=== PATIENT | male | born 1930 | race Caucasian/White ===

== ENCOUNTER 2016-12-19 00:14 | Day surgery (SDC) | payer MEDICARE, OTHER ==
[2016-12-19] VITALS (12 sets, daily range): BP systolic 113–153; BP diastolic 61–93; PULSE 73–125; RESP 15–20; O2SAT 95–98
[~2016-12-19] VITALS: Ht 172.7 cm; Wt 66.3 kg
[~2016-12-19 00:14] MED LIST: ACET-2766 PO; ASPI-973 PO; CETI10CA PO; DICY10CA56 PO; METO-272 PO; PRAV40TA PO; RIVA20TA PO
[2016-12-19] MEDS ORDERED: 0.9% Sodium Chloride 1,000 ML IV PRN (08:39)
[2016-12-19] MEDS ORDERED: Vancomycin Inj 1,000 MG in IV Premix 1 EACH IV ONE (08:40)
[2016-12-19 10:33] LABS: BASOPHILS % (AUTO) 0.4 % (0-3); EOSINOPHILS % (AUTO) 0.4 % (0-5); MONOCYTES % (AUTO) 10.3 % (4-12); Mean Corpuscular Hemoglobin 32.9 pg (27.0-35.0); Mean Corpuscular Volume 101.2 fL (81-100); NEUTROPHILS % (AUTO) 67.7 % (40-74); Platelet Count 151 bil/L (150-400)
[2016-12-19 10:51] LABS: INR 1.08 ratio
[2016-12-19] MEDS ORDERED: 0.9% Sodium Chloride 250 ML ONE (10:56)
[2016-12-19] MEDS ORDERED: Vancomycin 1,000 mg Inj ONE (10:56)
[2016-12-19] MEDS ORDERED: Heparin 5,000 Units/500 mL NS Premix IV ONE (10:56)
[2016-12-19] MEDS ORDERED: Bupivacaine-MPF 0.5% 30 mL Inj ONE (10:56)
[2016-12-19] MEDS ORDERED: fentaNYL-PF 50 mCg/mL 2 mL Inj ONE (11:48)
[2016-12-19] MEDS ORDERED: hydrALAZINE 20 mg/mL Inj ONE (13:04)
[2016-12-19] MEDS ORDERED: HYDROcodone-APAP 5-325 mg Tablet PO PRN (13:45)
[2016-12-19] MEDS ORDERED: Ondansetron 2 mg/mL 2 mL Inj IVPUSH PRN (13:45)
--- NOTE | 2016-12-19 14:49 | DRSVH ---
PROCEDURE: X-RAY CHEST ONE VIEW, PORTABLE ([id number]) INDICATIONS: For new leads placed TECHNIQUE: One view of the chest was acquired. COMPARISON: [facility], CHEST 2 VIEW, 05/06/2012, 14:26. FINDINGS: Surgical changes and devices: Dual-chamber lead cardiac pacemaker present in expected position. Medi an sternotomy wires and valvular replacement redemonstrated. Lungs and pleura: No pleural effusions or pneumothorax. Lungs are clear. Mediastinum: Mediastinal contours appear normal. Heart size is normal. Bones and chest wall: No suspicious bony lesions. Overlying soft tissues appear unremarkable. IMPRESSION: No immediate complications status post cardiac pacemaker placement. Dictated by: Anselmo CALVILLO Interpreted: Veronica Fraga MD on 12/19/2016 at 14:48 Transcribed by: CATIE on 12/19/2016 at 14:49 Approved by: Veronica Fraga M.D. on 12/20/2016 at 10:20
[2016-12-19] MEDS: 0.9% Sodium Chloride 1,000 ML IV SCH (17:38)
--- NOTE | 2016-12-19 17:53 | NUR ---
TRANSFER FROM [facility] Admitted a 86/M into room 3006 from [facility] following report from ALEXANDRA Puente. Pt A&Ox4, pleasant, denies any pain/discomfort at this time. On RA, denies any SOB at this time. Denies any CP/discomfort. Drsg to L upper chest is C/D/I. Pt has 2 PIV's, both flushing easily. AYESHA arm placed in sling. Pt using urinal to void. Tolerating HH diet. Pt did have a reaction to Yolieo per report, Demarcus carrasco'kulwinder. Pt introduced to staff, bed/controls and call light. Bed in lowest, locked position.
[2016-12-19] MEDS: MeTOProlol XL 25 mg ER24 Tablet PO SCH (20:13)
[2016-12-20] VITALS (7 sets, daily range): BP systolic 161–180; BP diastolic 85–94; PULSE 67–78; RESP 16; O2SAT 97–100
[2016-12-20] MEDS ORDERED: Vancomycin Inj 1,000 MG in IV Premix 1 EACH IV ONE (01:45)
[2016-12-20] MEDS: MeTOProlol XL 25 mg ER24 Tablet PO SCH ×2 (02:02→05:18)
[2016-12-20] MEDS: 0.9% Sodium Chloride 1,000 ML IV SCH ×2 (02:30→07:53)
--- NOTE | 2016-12-20 03:31 | OP ---
[address] [address] OPERATIVE REPORT PATIENT: EMIL DEGROOT : 1930 MR#: [id number] ADMIT: 12/19/2016 JOB ID: [id number] DATE OF SURGERY: 12/19/2016 PREOPERATIVE DIAGNOSIS(ES): Sick sinus syndrome. POSTOPERATIVE DIAGNOSIS(ES): Sick sinus syndrome. PROCEDURES PERFORMED: 1. Dual-chamber pacemaker implantation. 2. Left upper extremity venogram. 3. Fluoroscopy. SURGEON: 1. Aaron Forrester MD, electrophysiology attending. 2. Radha Morrison MD, interventional cardiology attending. PLASTERING SUPERVISOR: Greg Bush PA-C IMPLANTED DEVICES: . DEVICE: 1. [employer] pulse generator, model 2272, serial #[id number]. 2. Right atrial lead [employer], LPA 12 M, 52 cm, serial #[id number]. 3. RV lead [employer], LPA 1200 M, 58 cm, CBD [id number]. ANESTHESIA: Bolus dosing of Versed and fentanyl to an appropriate level of sedation. PHYSICAL EXAMINATION: The patient is a pleasant 86-year-old man with coronary artery disease, status post bypass grafting, aortic valve replacement, trifascicular block, sick sinus syndrome and paroxysmal atrial flutter. After discussion of the risks and benefits of pacemaker implantation, he opted to proceed. PROCEDURAL DESCRIPTION: Following informed consent, the patient was taken to the EP laboratory in a nonfasting sedated state where he was prepped in the usual sterile fashion. The left infraclavicular region was infiltrated with 40 cc of a 50/50 mixture of bupivacaine and lidocaine. Once adequate anesthesia was achieved, a 3 cm transverse incision was performed 2 cm below in the pectoralis fascia. A pocket was fashioned using a combination of electrocautery and blunt dissection. Once adequate hemostasis had been achieved, a left upper extremity venogram was performed. Under venographic guidance, the left axillary vein was cannulated twice over the first rib with a micropuncture needle to deploy two 0.035, 3 mm J guidewires. Over the first of these, an 8-Cymraes tear-away sheath was advanced the RV outflow tract and ultimately to the RV apex. The lead was affixed in position using associated active fixation screw. The lead was connected to the external analyzer and demonstrated appropriately sensed R waves, impedance and capture threshold. The lead was checked to 10 V and there was no evidence of diaphragmatic stimulation. Attention was now paid to placement of the right atrial lead over the first rib to deploy a J guidewire. Another 8-Cymraes tear-away sheath was advanced. Once the guidewire was removed, an active fixation lead was advanced to the right atrial appendage. It was affixed in position using associated active fixation screw. external analyzer and demonstrated appropriately sensed P waves, impedance, capture threshold. The lead was checked to 10 V and there was no evidence of diaphragmatic stimulation. Once the position and redundancy of both leads were confirmed with multiple fluoroscopic views, the leads were anchored to the prepectoral fascia using copious solution. was connected to a generator. using 1-0 Ti-Cron suture. The incision was then closed with running layers of absorbable suture. The wound was dressed with skin adhesive and a small dressing. At the end of the procedure, the needle, sponge and instrument counts were all correct. COMPLICATIONS: None. ESTIMATED BLOOD LOSS: Negligible. DEVICE MEASURED DATA: 1. Right atrial lead: 2.5 mV, 550 ohms, 0.5 V at 0.4 msec. 2. RV lead: 7.6 mV, 580 ohms, 0.5 V at 0.4 msec. FINAL PROGRAM PARAMETERS: DDD 60-130 beats per minute. IMPRESSION: Successful dual-chamber MRI conditional pacemaker implantation. PLAN: 1. Stat portable chest x-ray. 2. PA and lateral chest x-ray in the morning. 3. . 4. Vancomycin doxycycline 100 p.o. daily x7 days. 5. Wound check in one week. ATTENDING STATEMENT: Aaron Forrester, attending stage electrician helper, was present for and performed all aspects of this procedure.
--- NOTE | 2016-12-20 05:31 | NUR ---
Hypertension/Pacemaker BP180/90 HR78 at 0125, rechecked at 0155 BP178/88 HR73. Pt refused Metoprolol scheduled at 2030. Undo Metoprolol that was non-administered at HS and given to pt per charge nurse Marie Lincoln recommendation. HTN not improved, BP 178/85 hr 67 this am. Mild headaches. Tylenol given, Metoprolol 25mg morning dose given per Dr. Colindres order. Communication sheet filled and given to charge nurse to pass on the BP information to Dr. Forrester. Pt denies pain at pacemaker site at left upper chest, dressing CDI, no bleeding or hematoma, or drainage noted. Left arm in sling. Pt instructed do not push, pull or lift by left arm. Tele: V-paced 70s, up to 120s when sitting up at the edge of bed at late evening, then back to 70s soon after lying in bed, remains V-paced 60s overnight.
--- NOTE | 2016-12-20 10:03 | DRSVH ---
PROCEDURE: X-RAY CHEST, TWO VIEWS ([id number]) INDICATIONS: For new lead placement TECHNIQUE: 2 views of the chest were acquired. COMPARISON: [facility], CR, XR CHEST 1VW (PORTABLE), 12/19/2016, 14:09. FINDINGS: Surgical changes and devices: Stable positioning of dual chamber cardiac pacemaker. Median sternotom y wires are redemonstrated. Lungs and pleura: There is linear lucency seen on the frontal view projected over the lateral left lo wer lobe with appearance suggesting probable artifact likely on the skin surface. Lungs are clear no definite pneumothorax is seen. No pleural fluid collections. Mediastinum: Mediastinal contours are normal. Heart size is normal. Bones and chest wall: No suspicious bony abnormalities. Soft tissues appear unremarkable. IMPRESSION: 1. Stable position of left cardiac pacemaker. 2. Linear density overlying the left lower lobe laterally on the frontal view likely artifact related to external source. If indicated repeat study could be performed and/or decubitus film. Dictated by: Anselmo Prince RR Interpreted: Katrin Esteban MD on 12/20/2016 at 10:01 Transcribed by: JAZMINE on 12/20/2016 at 10:03 Approved by: Katrin Esteban MD, PhD on 12/20/2016 at 17:07
--- NOTE | 2016-12-20 10:13 | NUR ---
Social Work- initial assessment/ discharge: Data:See initial assessment.Pt is a 86 y/o male who was admitted for PRE syncope per H&P. Pt insurance is [employer] and PCP is Greg Beyer MD. EMR reviewed. SW met with pt to discuss discharge planning, SW role explained. Pt is alert and oriented x3. Pt resides at home with his in [place] where he remains independent with ADLs. Pt does not use any DME and does drive. Pt has no HH or SNF history. Pt has [employer]dc care insurance, but no VA benefits. SW discussed DPOA/advanced directive, pt states he has completed this, SW encouraged pt to bring a copy into the hospital. Pt likely will discharge home today. Pt's to provide transport home at discharge. No discharge needs identified. SW provided phone number and plan on white board in room. All updated and agreeable to plan. Assessment:Pt who is independent at baseline. Plan:Pt to discharge home today via POV. No anticipated discharge needs identified. All updated and agreeable to plan. SAM Alcantara Addendum: 12/20/16 at 1020 by IMAN BRAR Amended: Links added.
[2016-12-20] MEDS ORDERED: MeTOProlol XL 25 mg ER24 Tablet PO ONE (10:30)
--- NOTE | 2016-12-20 11:05 | DRSVH ---
PROCEDURE: X-RAY CHEST, TWO VIEWS ([id number]) INDICATIONS: r/o pneumo, left lower lung area TECHNIQUE: 2 views of the chest were acquired. COMPARISON: [facility], CR, XR CHEST 2VW, 12/20/2016, 7:05. FINDINGS: Surgical changes and devices: Stable position a dual chamber cardiac pacer. Post median sternotomy.. Lungs and pleura: No pleural effusions or pneumothorax. Lungs are clear. Mediastinum: Mediastinal contours are normal. Heart size is normal. Bones and chest wall: No suspicious bony abnormalities. Soft tissues appear unremarkable. IMPRESSION: No pneumothorax. Dictated by: Anselmo Prince RRDamian Interpreted: Agustin López MD on 12/20/2016 at 11:03 Transcribed by: MARY JO on 12/20/2016 at 11:04 Approved by: Agustin López M.D. on 12/21/2016 at 2:09
--- NOTE | 2016-12-20 11:49 | PCM.DIMED ---
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 Did not extend the left elbow high above the shoulder for one month. Do not lift, push or pull more than 10 pounds with the left arm for one month.) Call your provider Fever or Chills, Bleeding, Excessive diarrhea Patient Instructions Follow-up in: 1 week Mid-level Provider (F9): Greg Bush PA-C Follow-up with Mid-level in: 6 weeks Greg Bush PA-C Dec 20, 2016 11:49
[2016-12-20] MEDS ORDERED: DOXY100C2 PO (11:52)
[2016-12-20] MEDS ORDERED: METO-272 PO (11:52)
--- NOTE | 2016-12-20 12:26 | DIS ---
[address] [address] DISCHARGE SUMMARY PATIENT: EMIL DEGROOT : 1930 MR#: [id number] ADMIT: 12/19/2016 JOB ID: [id number] DIS: REASON FOR ADMISSION: Pacemaker implant. CHIEF COMPLAINT: Recurrent near syncope. BRIEF HISTORY: The patient is a pleasant 86-year-old man with preserved biventricular function, a bioprosthetic aortic valve replacement, and who is known to have coronary artery disease and is post bypass grafting at the time of valve replacement. He also has intermittent atrial flutter and is on a beta-edouard. He was referred to Dr. Valdivia because of his conduction system disease including profound first-degree AV block and bifascicular block. The patient has had three episodes of sudden near-syncope which required him being caught on the way to the ground. He does not believe he fully lost consciousness. His ECG shows a AR interval greater than 400 msec and bifascicular block. His necessary beta edouard, used for rate control during atrial arrhythmias and for blood pressure, has been reduced in hopes of preventing syncope before he gets the pacemaker. COURSE IN HOSPITAL: The patient was admitted through the [facility] and taken to the [facility] concrete [facility], where he received a dual-chamber pacemaker without incident. He was taken back to the [facility] for recovery from sedation and then transferred up to the [facility] for overnight observation and telemetry monitoring. He did well overnight. The pacemaker pocket is closed and dry and there is a small hematoma in the pocket area and ecchymosis in the lateral inferior area to the pocket. It is not painful to him. Chest x-ray shows good lead positions and no pneumothorax. Pacemaker interrogation shows excellent capture and sensing thresholds for both leads. He feels well and has no specific complaints this morning. DISPOSITION: The patient was discharged home in good condition with a followup appointment at the [facility] office in one week. He was asked to keep the incision dry one day and not to lift push or pull more than 10 pounds with the left arm for one month. He was also asked not to extend his left arm high above his head for one month. He will follow his heart healthy diet and take medications as prescribed. DISCHARGE MEDICATIONS: 1. Doxycycline 100 mg daily. 2. Acetaminophen 650 mg tablets two tablets p.r.n. pain. 3. Aspirin 81 mg daily. 4. Zyrtec 10 mg daily. 5. Dicyclomine 10 mg daily. 6. Pravastatin 40 mg daily. 7. Rivaroxaban 20 mg daily. 8. Metoprolol, dose increased, 50 mg b.i.d. FINAL DIAGNOSES: 1. Recurrent near-syncope. 2. Bifascicular AV block. 3. Marked first-degree AV block. 4. Paroxysmal atrial fibrillation. 5. Hypertension.
--- NOTE | 2016-12-20 14:17 | NUR ---
Discharge Pt d/c home as ordered. Removed both IV's, catheters intact, no bleeding. Pt continued to have L arm in sling. BP high today, cardiology aware, medication adjustments made. Pt reports that his dose of metoprolol was recently reduced, explaining current BP readings. Provided pt with d/c paperwork and instructions, including carenotes. Prescriptions ready at pt's home pharmacy. Pt and verbalize good understanding of medication instructions. Pt taken off [place] via w/c, home in private vehicle with .
== END 2016-12-20 14:03 | disposition home or self-care (01) ==
LOC: SOUO 00:14 → MPC 16:55 → SOUO 12-20 14:03
PROVIDERS: ATTEND Internal Medicine Cardiovascular Disease
DX: I49.5 Sick sinus syndrome (principal); I25.10 Atherosclerotic heart disease of native coronary artery without angina pectoris; I45.2 Bifascicular block; I44.0 Atrioventricular block, first degree; R55 Syncope and collapse; I48.92 Unspecified atrial flutter; I10 Essential (primary) hypertension; E78.5 Hyperlipidemia, unspecified; N40.1 Benign prostatic hyperplasia with lower urinary tract symptoms; R39.14 Feeling of incomplete bladder emptying; R35.1 Nocturia; I25.2 Old myocardial infarction; Z95.3 Presence of xenogenic heart valve; Z79.82 Long term (current) use of aspirin; Z79.01 Long term (current) use of anticoagulants; Z95.1 Presence of aortocoronary bypass graft
CPT/HCPCS: 33208; 36415; 71010; 71020; 80048; 85025; 85610; 93005; 99152; 99153; C1769; C1785; C1892; C1898; J0360; J1200; J1644; J2250; J3010; J3370; J7030; J7050; Q9967